=== PATIENT | male | born 1970 | race Two or more races ===

== ENCOUNTER 2016-09-15 17:57 | Emergency (ER) | payer SELFPAY ==
[~2016-09-15] VITALS: Ht 182.9 cm; Wt 88.9 kg
[2016-09-15 17:57] VITALS: BP 113/71
[2016-09-15] MEDS ORDERED: KETOROLAC TROMETHAMINE INJ 30 MG/ML VIAL ONE (18:25)
[2016-09-15] MEDS ORDERED: KETOROLAC TROMETHAMINE INJ 60 MG/2 ML VIAL IM ONE (18:30)
--- NOTE | 2016-09-15 18:40 | NUR ---
RADIOLOGY AT BEDSIDE FOR L ANKLE XRAY.
== END 2016-09-15 19:58 | disposition home or self-care (01) ==
LOC: ER 18:04
DX: S39.012A Strain of muscle, fascia and tendon of lower back, initial encounter (principal); J45.909 Unspecified asthma, uncomplicated; K46.9 Unspecified abdominal hernia without obstruction or gangrene; V43.52XA Car driver injured in collision with other type car in traffic accident, initial encounter; Y93.89 Activity, other specified; Y92.488 Other paved roadways as the place of occurrence of the external cause; Y99.8 Other external cause status
CPT/HCPCS: 72100; 73610; 96372; 99284; A4606; J1885; Z7610

== ENCOUNTER 2022-03-07 14:33 | Emergency (ER) | payer BC ==
[~2022-03-07] VITALS: Ht 185.4 cm; Wt 95.3 kg
--- NOTE | 2022-03-07 15:40 | NUR ---
C/O LEFT ANKLE PAIN WITH SWELLING S/P SLIP AND FALL. 8/10 ON PAIN SCALE. PT PLACED IN BED . [id number].
[2022-03-07] MEDS ORDERED: KETOROLAC TROMETHAMINE INJ 30 MG/ML VIAL ONE (16:12)
[2022-03-07] MEDS: KETOROLAC TROMETHAMINE INJ 60 MG/2 ML VIAL IM ONE (16:15)
[2022-03-07] MEDS ORDERED: OXYC-128 PO ×2 (16:44→19:37)
--- NOTE | 2022-03-07 17:00 | NUR ---
TECH AT BEDSIDE FOR SHORT LEG POSTERIOR SPLINT.
--- NOTE | 2022-03-07 17:21 | NUR ---
Patient discharged to home in stable condition. Written and verbal after care instructions given. Patient verbalizes understanding of instruction.
[2022-03-07 17:24] VITALS: BP 130/95
== END 2022-03-07 17:24 | disposition home or self-care (01) ==
LOC: ER 14:42
DX: S82.842A Displaced bimalleolar fracture of left lower leg, initial encounter for closed fracture (principal); J45.909 Unspecified asthma, uncomplicated; Z98.890 Other specified postprocedural states; X50.1XXA Overexertion from prolonged static or awkward postures, initial encounter; Y93.89 Activity, other specified; Y92.89 Other specified places as the place of occurrence of the external cause; Y99.8 Other external cause status
CPT/HCPCS: 27810; 99284; 73610; 73630; 96372; J1885

== ENCOUNTER 2022-03-16 16:28 | Emergency (ER) | payer BC ==
[~2022-03-16] VITALS: Ht 182.9 cm; Wt 93.0 kg
[~2022-03-16 16:28] MED LIST: OXYC-128 PO
[2022-03-16 16:30] VITALS: BP 140/77
--- NOTE | 2022-03-16 18:00 | NUR ---
SEEN PT FOR EVAL
--- NOTE | 2022-03-16 18:20 | NUR ---
TECH AT BEDSIDE FOR SPLINT APPLICATION
[2022-03-16] MEDS ORDERED: OXYC-128 PO ×2 (18:30→18:38)
--- NOTE | 2022-03-16 19:20 | NUR ---
Patient discharged to home in stable condition. Written and verbal after care instructions given. Patient verbalizes understanding of instruction.
== END 2022-03-16 19:35 | disposition home or self-care (01) ==
LOC: ER 16:31
DX: S82.892D Other fracture of left lower leg, subsequent encounter for closed fracture with routine healing (principal); J45.909 Unspecified asthma, uncomplicated; Z98.890 Other specified postprocedural states; Z79.899 Other long term (current) drug therapy; X58.XXXD Exposure to other specified factors, subsequent encounter